=== PATIENT | female | born 1995 | race Hispanic/Latino ===

== ENCOUNTER 2018-10-13 11:28 | Inpatient (IN) | payer OTHER, MEDICAID ==
[~2018-10-13] VITALS: Ht 147.3 cm; Wt 72.1 kg
[2018-10-13 12:42] LABS: HEMATOCRIT 35.8 % (36-48); MEAN CORPUSCULAR HEMOGLOBIN 24.2 pg (27.0-33.0); MEAN CORPUSCULAR HGB CONC 32.3 g/dL (32.0-36.0); MEAN CORPUSCULAR VOLUME 74.8 fL (79-99); NUCLEATED RED BLOOD CELLS 0.1 % (0.0-0.19); PLATELET COUNT (AUTO) 251 K/uL (130-400); RED BLOOD CELL COUNT(AUTO) 4.78 MIL/uL (4.00-5.50); RED CELL DISTRIBUTION WIDTH 17.2 % (11.0-15.5); WHITE BLOOD COUNT (AUTO) 10.2 K/uL (4.8-10.8)
[2018-10-13 12:45] LABS: APPEARANCE,URINE Clear (CLEAR); BILIRUBIN,URINE Negative (NEGATIVE); COLOR,URINE Yellow (YELLOW); GLUCOSE, URINE (UA) Negative (NEGATIVE); KETONES,URINE Negative (NEGATIVE); LEUKOCYTE ESTERASE ,URINE Negative (NEGATIVE); NITRATE,URINE Negative (NEGATIVE); OCCULT BLOOD,URINE Negative (NEGATIVE); PH,URINE 7.5 (5.0-8.0); PROTEIN,URINE Negative (NEGATIVE); UROBILINOGEN,URINE 0.2 mg/dL (0.2-1.0)
[2018-10-13] MEDS ORDERED: LACTATED RINGERS 1000ML 1,000 ML IV PRN (13:02)
[2018-10-13] MEDS ORDERED: OXYTOCIN 10 USP UNITS/ML 20 UNIT in LACTATED RINGERS 1000ML 1,000 ML IV SCH (13:15)
[2018-10-13] MEDS: MEPERIDINE HCL/PF 25 MG/0.5 ML AMPUL IVP SCH (14:30)
[2018-10-13] MEDS ORDERED: MEPERIDINE-PF 50 MG/ML SYG ONE (14:31)
[2018-10-13] MEDS: PROMETHAZINE HCL 25 MG/ML 1ML AMPULE IM SCH (14:34)
[2018-10-13] MEDS ORDERED: LIDOCAINE HCL 1% 20 ML VIAL ONE (14:42)
[2018-10-13] MEDS ORDERED: IBUPROFEN 800 MG TAB PO PRN (16:15)
[2018-10-13] MEDS ORDERED: ACETAMINOPHEN 325 MG TAB PO PRN (16:15)
[2018-10-13] MEDS ORDERED: ACETAMINOPHEN-CODEINE 300/30MG TAB PO PRN (16:15)
[2018-10-13] MEDS ORDERED: LANOLIN 30GM OINTMENT TP PRN (16:15)
[2018-10-13] MEDS ORDERED: BENZOCAINE/LANOLIN/ALOE VERA 60 ML AEROSOL TP PRN (16:15)
[2018-10-13] MEDS ORDERED: WITCH HAZEL 1 PAD TP PRN (16:15)
[2018-10-13] MEDS ORDERED: DIPH,PERTUSS(ACELL),TET VAC/PF 0.5 ML VIAL IM PRN (16:15)
[2018-10-13] MEDS ORDERED: HYDROCODONE/ACETAMINOPHEN 5/325 MG TAB PO PRN (16:15)
[2018-10-13] MEDS ORDERED: OXYTOCIN-LR 20 UNITS/1000 ML 1,000 ML IV ONE (17:05)
[2018-10-13 17:26] VITALS: BP 133/73
[2018-10-13] MEDS ORDERED: FERR-82 PO (17:32)
[2018-10-13 19:00] VITALS: BP 130/70
[2018-10-13] MEDS: DOCUSATE SODIUM 100 MG CAP PO SCH (20:36)
--- NOTE | 2018-10-13 21:00 | NUR ---
VOID/ ANJANA CARE Patient assisted up to bathroom. Steady gait noted. Patient able to void 800ml of clear yellow urine without difficulty. Anjana care instructions given and patient able to do her own anjana care. anjana pad changed and mesh panties on. Patient assisted back to bed without incident.
--- NOTE | 2018-10-13 21:15 | NUR ---
IV Pitocin IV bag #2 hung at infusion rate of 125ml/hr IV
[2018-10-14 00:15] VITALS: BP_SYST 106; BP_SYST 114; BP_DIAS 64; BP_DIAS 74
[2018-10-14 04:08] VITALS: BP 117/66
[2018-10-14 06:04] LABS: HEMATOCRIT 35.2 % (36-48); MEAN CORPUSCULAR HEMOGLOBIN 23.9 pg (27.0-33.0); MEAN CORPUSCULAR HGB CONC 31.6 g/dL (32.0-36.0); MEAN CORPUSCULAR VOLUME 75.6 fL (79-99); PLATELET COUNT (AUTO) 243 K/uL (130-400); RED BLOOD CELL COUNT(AUTO) 4.65 MIL/uL (4.00-5.50); RED CELL DISTRIBUTION WIDTH 17.2 % (11.0-15.5); WHITE BLOOD COUNT (AUTO) 11.7 K/uL (4.8-10.8)
[2018-10-14 07:25] VITALS: BP 106/57
[2018-10-14 08:18] LABS: HEPATITIS Bs ANTIGEN SCREEN P Negative (Negative)
[2018-10-14] MEDS: DOCUSATE SODIUM 100 MG CAP PO SCH (10:04)
[2018-10-14 11:37] VITALS: BP 127/68
[2018-10-14] MEDS: PROMETHAZINE HCL 25 MG/ML 1ML AMPULE IM SCH (14:30)
[2018-10-14] MEDS: MEPERIDINE HCL/PF 25 MG/0.5 ML AMPUL IVP SCH (14:30)
[2018-10-14 15:27] VITALS: BP 128/64
--- NOTE | 2018-10-14 16:50 | NUR ---
REPORT RECEIVED FROM CASSIE JOHNSON AND PATIENT CARE TRANSFERED AT THIS TIME.
--- NOTE | 2018-10-14 17:00 | NUR ---
PATIENT WAS TAKEN VIA W/C CARRYING BABY IN ARMS TO FAMILY VEHICLE. PATIENT REMAINS STABLE AND DENIES PAIN.
== END 2018-10-14 17:00 | disposition home or self-care (01) | DRG 807 ==
LOC: OBSVTOIN 11:28 → LDH 11:28 → WSH 17:26
PROVIDERS: ADMIT Obstetrics & Gynecology; ATTEND Obstetrics & Gynecology
PROC: 10E0XZZ Delivery of Products of Conception, External Approach (ICD-10-PCS; principal; 2018-10-13)
PROC: 10907ZC Drainage of Amniotic Fluid, Therapeutic from Products of Conception, Via Natural or Artificial Opening (ICD-10-PCS; 2018-10-13)
DX: O69.1XX0 Labor and delivery complicated by cord around neck, with compression, not applicable or unspecified (principal); Z37.0 Single live birth; Z3A.38 38 weeks gestation of pregnancy
CPT/HCPCS: 36415; 81003; 85027; 86592; 86850; 86900; 86901; 87340; A4351; A4606; G0378; J2175; J2550; J2590; J7120

== ENCOUNTER 2019-06-10 18:14 | Emergency (ER) | payer MEDICAID, OTHER ==
[~2019-06-10 18:14] MED LIST: FERR-82 PO
== END 2019-06-10 19:22 | disposition home or self-care (01) ==
LOC: EDH 18:14
DX: H66.92 Otitis media, unspecified, left ear (principal)

== ENCOUNTER 2022-04-24 22:51 | Emergency (ER) | payer MEDICAID, OTHER ==
[~2022-04-24] VITALS: Ht 149.9 cm; Wt 64.9 kg
[2022-04-24 23:19] LABS: BASOPHILS % (AUTO) 0.4 % (0.0-5.0); EOSINOPHILS % (AUTO) 1.4 % (0.0-8.0); LYMPHOCYTES % (AUTO) 23.3 % (21.0-51.0); MEAN CORPUSCULAR HEMOGLOBIN 25.6 pg (27.0-33.0); MEAN CORPUSCULAR HGB CONC 32.5 g/dL (32.0-36.0); MEAN CORPUSCULAR VOLUME 78.9 fL (79-99); MONOCYTES % (AUTO) 5.9 % (3.0-13.0); NEUTROPHILS % (AUTO) 68.7 % (40.0-77.0); PLATELET COUNT (AUTO) 324 K/uL (130-400); RED BLOOD CELL COUNT(AUTO) 5.07 MIL/uL (4.00-5.50); RED CELL DISTRIBUTION WIDTH 13.7 % (11.0-15.5); WHITE BLOOD COUNT (AUTO) 14.5 K/uL (4.8-10.8)
[2022-04-24 23:20] LABS: APPEARANCE,URINE CLEAR (CLEAR); BILIRUBIN,URINE NEGATIVE (NEGATIVE); COLOR,URINE YELLOW (YELLOW); GLUCOSE, URINE (UA) NEGATIVE (NEGATIVE); KETONES,URINE NEGATIVE (NEGATIVE); LEUKOCYTE ESTERASE ,URINE NEGATIVE (NEGATIVE); NITRATE,URINE POSITIVE (NEGATIVE); OCCULT BLOOD,URINE NEGATIVE (NEGATIVE); PROTEIN,URINE NEGATIVE (NEGATIVE); UROBILINOGEN,URINE 0.2 mg/dL (0.2-1.0)
[2022-04-24 23:29] LABS: HCG,QUALITATIVE URINE NEGATIVE (NEGATIVE)
[2022-04-24 23:29] LABS: CREATININE 0.7 mg/dL (0.5-1.5); POTASSIUM 3.9 mmol/L (3.5-5.1)
[2022-04-24 23:33] LABS: BACTERIA,URINE Rare /HPF (None Seen); MUCUS,URINE Moderate LPF (None Seen); RBC,URINE None Seen /HPF (0-1); SQUAMOUS EPITHELIAL CELL,UR Moderate /HPF (0-2); WBC,URINE None Seen /HPF (0-1)
[2022-04-24] MEDS ORDERED: CEPH500B PO (23:35)
[2022-04-24 23:43] LABS: ALBUMIN 4.3 g/dL (3.5-5.0); TOTAL PROTEIN, SERUM 8.1 g/dL (6.0-8.3)
[2022-04-24 23:50] VITALS: BP 125/75
[2022-04-25] MEDS ORDERED: CEFTRIAXONE 1G VIAL IVP ONE
== END 2022-04-25 00:03 | disposition home or self-care (01) ==
LOC: EDH 22:51
DX: N39.0 Urinary tract infection, site not specified (principal); Z20.822 Contact with and (suspected) exposure to COVID-19; Z98.51 Tubal ligation status
CPT/HCPCS: 99285; 96374; 71045; 87635; 84484; 80053; 85025; 87088; 87804 ×2; 81001; 81025; 36415; 93005; C9803; J0696